=== PATIENT | female | born 1955 | race Caucasian/White ===

== ENCOUNTER → 2021-01-19 15:55 | Outpatient (CLI) | payer MEDICARE, SELFPAY ==
--- NOTE | ~2021-01-19 | US_ITS ---
EXAMINATION: US retroperitoneal comp DATE: 01/19/2021 16:51 INDICATION: Right flank pain. Hematuria. TECHNIQUE: Multiple ultrasound grayscale images of the kidneys were obtained. COMPARISON: None. FINDINGS: Sensitivity is decreased by obesity. The right kidney measures 9.0 x 5.7 x 5.0 cm. The left kidney me asures 12.1 x 6.1 x 6.3 cm. The kidneys demonstrate normal parenchymal echogenicity. There is no hydr onephrosis. The bladder is normal. IMPRESSION: 1. Normal kidneys. No hydronephrosis. Reviewed, dictated and finalized at location A.
== END ==
PROVIDERS: PCP Nurse Practitioner Family; Visit Provider Nurse Practitioner Family
DX: R31.9 Hematuria, unspecified (principal); R10.9 Unspecified abdominal pain
CPT/HCPCS: 76770

== ENCOUNTER 2023-08-21 15:35 | Outpatient (CLI) | payer MEDICARE, SELFPAY ==
[2023-08-21 15:57] LABS: Basophils Percent Auto 0.5 % (0.2-1.2); Eosinophils Absolute Auto 0.1 K/mm3 (0-0.3); Eosinophils Percent Auto 1.5 % (0-4.4); Hematocrit 38.2 % (37.0-47.0); Hemoglobin 11.8 g/dL (12.0-15.0); Immature Granulocyte Absolute 0.02 K/mm3 (0.00-0.031); Immature Granulocyte Percent A 0.3 % (0-0.5); Lymphocytes Absolute Auto 1.51 K/mm3 (0.9-3.2); Lymphocytes Percent Auto 23.3 % (18.3-44.2); Mean Corpuscular HGB Conc 30.9 g/dl (32-36); Mean Corpuscular Hemoglobin 26.9 pg (26-34); Mean Platelet Volume 10.2 fl (7.4-10.4); Monocytes Absolute Auto 0.5 K/mm3 (0.1-0.6); Monocytes Percent Auto 7.6 % (2.6-8.5); Neutrophils Absolute Auto 4.3 K/mm3 (1.3-6.7); Neutrophils Percent Auto 66.8 % (45.5-73.1); Platelet Count Result 264 k/mm3 (150-375); Red Blood Count 4.39 M/mm3 (4.2-5.4); Red Cell Distribution Width 15.8 % (11.5-14.5); White Blood Count 6.5 K/mm3 (4.5-10.0)
[2023-08-21 16:33] LABS: Alanine Aminotransferase 17 U/L (6-35); Alkaline Phosphatase 83 U/L (38-126); Anion Gap 6 mmol/L (8-16); Aspartate Amino Transferase 16 U/L (14-36); Bilirubin,Total 0.5 mg/dL (0.2-1.3); Blood Urea Nitrogen 29 mg/dL (7-17); Carbon Dioxide 29 mmol/L (22-30); Chloride 100 mmol/L (98-107); Estimated Glomerular Filt Rate 49; Glucose 210 mg/dL (65-110); Potassium 4.1 mmol/L (3.4-5.0); Sodium 135 mmol/L (137-145)
[2023-08-24 01:52] LABS: CA-125 209 U/mL (<35)
== END 2023-08-21 15:36 | disposition home or self-care (01) ==
LOC: ANHLAB 15:38
PROVIDERS: PCP Nurse Practitioner Family; Visit Provider Internal Medicine Hematology & Oncology
DX: C54.1 Malignant neoplasm of endometrium (principal)
CPT/HCPCS: 36415; 80053; 85025; 86304

== ENCOUNTER 2023-09-02 16:47 | Outpatient (CLI) | payer MEDICARE, MEDICAID, SELFPAY ==
[2023-09-02 17:45] LABS: Prothrombin Time 13.2 Seconds (11.1-14.7)
[2023-09-02 17:46] LABS: Partial Thromboplastin Time 23.9 Seconds (22.3-36.8)
== END 2023-09-02 16:48 | disposition home or self-care (01) ==
LOC: ANHLAB 16:50
PROVIDERS: Visit Provider Surgery
DX: C54.1 Malignant neoplasm of endometrium (principal); Z01.818 Encounter for other preprocedural examination
CPT/HCPCS: 36415; 85610; 85730

== ENCOUNTER 2023-09-05 00:37 | Day surgery (SDC) | payer MEDICARE, MEDICAID, SELFPAY ==
[2023-08-29 11:22] VITALS: BMI 51.0
--- NOTE | 2023-08-29 11:33 | PC.NURSE ---
PRE-OP INSTRUCTIONS, PLEASE READ CAREFULLY Report to the Outpatient Waiting Room, entrance under the green pavilion located off [facility], at time _0630_ on date _09/05/23_. Planned Procedure Time: _0830_. Time changes happen often and if your time is changed the preop area will call you the afternoon before. - You and your visitor will be asked to self-screen and do not enter if you have any COVID symptoms. - A mask is optional within the hospital at this time. Patients may have clear liquids (water, carbonated beverages, clear teas, apple juice) until 3 hours prior to surgery (0530 AM) with a maximum of 20 ounces. - No food from midnight until time of surgery Take the following medications with a SIP of water the morning of surgery: _GABAPENTIN_ DO NOT STOP ANY OF YOUR OTHER PRESCRIPTION MEDICATIONS PRIOR TO SURGERY ?EXCEPT THE FOLLOWING Medications to discontinue per ANESTHESIA - _VITAMINS & SUPPLEMENTS 3 DAYS PRIOR TO SURGERY, Date to take last dose 09/01/23_ Please no make-up, nail hebrew, hairspray, perfume, deodorant, or body powder the day of surgery. No jewelry (including any body piercings) or valuables the day of surgery, leave them at home. Please take a shower or bath the night before, or the morning of, surgery with an antibacterial soap. Wear comfortable, loose fitting clothing. - Jewelry must be removed prior to entering the operating room. Rings and piercings that are not removed may be cut off. - The hospital will not accept responsibility for valuables. - Please leave all valuables, including medications, at home the day of surgery. If you are going home after surgery, a licensed vending route driver must drive you home. - NO public transportation without another adult if you receive anesthesia. - We recommend that an adult stay with you for 24 hours following discharge. - We also recommend that you do not drive, make important decision, drink alcoholic beverages, or take any drugs that were not prescribed by your health care provider for at least 24 hours after your discharge time. Follow any additional instructions given to you from your surgeon. If you or anyone in your household have experienced Covid symptoms in the past week, please notify your surgeon or the nurse liaison at the phone number below for possible testing. Telephone instructions given to _PATIENT_and asked if any additional questions and then verbalized understanding. Patient advised to call surgeon office or pre surgery nurse liaison [phone] if any additional questions.
--- NOTE | ~2023-09-05 | XR_ITS ---
EXAMINATION: XR chest port-a-cath/central DATE: 09/05/2023 10:17 INDICATION: Port placement. TECHNIQUE: A single frontal view of the chest was obtained on 2 radiographs. COMPARISON: Chest 2 views 11/30/2003 FINDINGS: Sensitivity is decreased by obesity. There is no pneumonia, pleural effusion, or pneumothor ax. The heart size is normal. There is a left internal jugular port with tip in superior vena cava. IMPRESSION: 1. Port tip in superior vena cava. Reviewed, dictated and finalized at location A.
--- NOTE | ~2023-09-05 | XR_ITS ---
EXAMINATION: XR fl guide central line place INDICATION: Port-A-Cath insertion TECHNIQUE: Two intraoperative fluoroscopic images are submitted for review. Total fluoroscopic time w as 26.1 seconds. COMPARISON: None available FINDINGS: Fluoroscopic images demonstrate insertion of a left internal jugular Port-A-Cath. Please re nina to procedure note for full details. IMPRESSION: 1. Please refer to procedure note for full details. Reviewed, dictated and finalized at location F.
[2023-09-05 06:20] VITALS: BP 167/70; PULSE 77; RESP 16; TEMP 36.8; O2SAT 95; BMI 51.5
[2023-09-05] MEDS: LACTATED RINGERS 1,000 ML 30 ML IV CONT (07:20)
[2023-09-05 07:29] LABS: Glucose Point of Care 198 mg/dl (65-105)
[2023-09-05] MEDS: KETOROLAC 15 MG/ML VIAL (*BKC) IV PUSH (07:29)
--- NOTE | 2023-09-05 07:30 | PM.IMHP ---
H&P: HPI History of Present Illness Date/Time: 09/05/23 07:30 Chief Complaint: Endometrial cancer Narrative: The patient is a 68-year-old female presenting to hospital for port placement. The patient has been recently diagnosed endometrial cancer and is undergoing chemotherapy. The patient denies any previous central venous catheterization. The patient is right-handed. Review of Systems Review of Systems: All systems reviewed & are unremarkable except as noted in HPI and below PMFSH Social History Social History Smoking status: Never smoker Second hand tobacco smoke exposure: No Alcohol intake: never Substance use: never Substance use type: does not use Living arrangements: with family Additional living arrangements comments: LIVES WITH SPOUE - BILL Spiritual care concerns: No Meds Home Medications and Allergies Home Medications Medication Instructions Recorded Confirmed Type ascorbic acid (vitamin C) 2,000 mg 2,000 mg PO DAILY 08/28/23 09/02/23 History tablet,extended release cholecalciferol (vitamin D3) 125 125 mcg PO DAILY 08/28/23 09/02/23 History mcg (5,000 unit) tablet (Vitamin D3) dapagliflozin propanediol 10 mg 10 mg PO DAILY 08/28/23 09/02/23 History tablet (Farxiga) gabapentin 400 mg capsule 800 mg PO BID 08/28/23 09/02/23 History indapamide 2.5 mg tablet 2.5 mg PO DAILY 08/28/23 09/02/23 History lisinopril 5 mg tablet 5 mg PO DAILY 08/28/23 09/02/23 History semaglutide 0.25 mg or 0.5 mg (2 0.25 mg subcut WEEKLY 08/28/23 09/02/23 History mg/1.5 mL) subcutaneous pen injector vitamin C 90 mg-zinc gluconate 15 1 karrie PO AC 08/28/23 09/02/23 History mg-herbal complex no. 325 lozenges Allergies Allergy/AdvReac Type Severity Reaction Status Date / Time No Known Allergies Allergy Mild Verified 09/02/23 11:25 Exam Const: General: cooperative, comfortable, no acute distress and obese HENMT: Head: normal to inspection, normocephalic and atraumatic Neck: Neck: normal visual inspection, full ROM and no lymphadenopathy Chest: Chest palpation & inspection: normal inspection of the chest Resp: Auscultation: clear to auscultation bilaterally Cardio: Rate: regular rate Rhythm: regular rhythm GI: Inspection: normal to inspection Assessment and Plan Assessment and plan (1) Endometrial cancer: Code(s): C54.1 - Malignant neoplasm of endometrium Status: Acute Assessment and Plan: will set up for port placement in the operating room
--- NOTE | 2023-09-05 07:33 | WPDHPUPDATE1 ---
History and Physical Update Update Date/Time: 09/05/23 07:33 History and Physical has been reviewed, including an updated exam of the patient. There are NO changes in the patient's condition. Risks, benefits, and alternatives have been discussed and questions answered. Patient agrees to proceed with procedure.
--- NOTE | 2023-09-05 07:49 | P.PNAN_ITS ---
Anes - Initial Pre Proc Eval Procedure: Operation Date: 09/05/23 08:30 Proposed Procedures p Insertion Celeste Cath - Yamini Gibson MD Date/Time: 09/05/23 07:49 Surgeon: Yamini Gibson MD Pre Op Diagnosis: Endometrial Carcinoma Patient Data Age: 68 Gender: F Height: 1.77 m Weight: 160.8 kg Last Vital Signs Temp 98.2 F 09/05/23 06:20 Pulse 77 09/05/23 06:20 Resp 16 09/05/23 06:20 BP 167/70 H 09/05/23 06:20 Pulse Ox 95 09/05/23 06:20 O2 Del Method Room Air 09/05/23 06:20 Allergies Allergy/AdvReac Type Severity Reaction Status Date / Time No Known Allergies Allergy Verified 09/05/23 07:36 Home Medications Medication Instructions Recorded Confirmed Type ascorbic acid (vitamin C) 2,000 mg 2,000 mg PO DAILY 08/28/23 09/05/23 History tablet,extended release cholecalciferol (vitamin D3) 125 125 mcg PO DAILY 08/28/23 09/05/23 History mcg (5,000 unit) tablet (Vitamin D3) dapagliflozin propanediol 10 mg 10 mg PO DAILY 08/28/23 09/02/23 History tablet (Farxiga) gabapentin 400 mg capsule 800 mg PO BID 08/28/23 09/05/23 History indapamide 2.5 mg tablet 2.5 mg PO DAILY 08/28/23 09/02/23 History lisinopril 5 mg tablet 5 mg PO DAILY 08/28/23 09/02/23 History semaglutide 0.25 mg or 0.5 mg (2 0.25 mg subcut WEEKLY 08/28/23 09/05/23 History mg/1.5 mL) subcutaneous pen injector vitamin C 90 mg-zinc gluconate 15 1 karrie PO AC 08/28/23 09/05/23 History mg-herbal complex no. 325 lozenges Laboratory Tests 09/05/23 07:26 POC Capillary Glucose 198 H mg/dl (65-105) Patient hx anesthesia problems: none Family hx anesthesia problems: none Results Review: All pre-operative results and documents have been reviewed as part of the pre- operative evaluation. PMFSH Social History Social History (Reviewed 09/05/23 @ 07:32 by BERTO Pride Smoking status: Never smoker Second hand tobacco smoke exposure: No Alcohol intake: never Substance use: never Substance use type: does not use Living arrangements: with family Additional living arrangements comments: LIVES WITH SPOUE - BILL Spiritual care concerns: No Anes - Eval Final PreProcedure Day of Procedure 09/05/23 07:49 Patient weight: super morbidly obese Heart: regular rate and rhythm Lungs: clear to auscultation Airway: Mallampati scale class III Neurological: alert and oriented Last oral intake: >/= 8 hours ASA classification: IV Emergent: no Anesthetic plan: proceed Anesthesia type and monitoring: general GIVS and LMA and standard monitoring Results Review: All pre-operative results and documents have been reviewed as part of the pre- operative evaluation. Informed Consent: The patient's anesthetic plan and its attendant risks and benefits were discussed with the patient/family/POA. Questions were solicited and answers provided to the satisfaction of the patient/family/POA.
[2023-09-05] MEDS: ceFAZolin 3 GM/D5W 100 ML 100 ML IVPB (08:44)
[2023-09-05] MEDS: BUPIVACAINE/EPINEPHRINE 0.5% 30 ML VIAL INFILTRATE (08:57)
[2023-09-05] MEDS: HEPARIN SODIUM, PORCINE 10,000 UNITS/10 ML VIAL 4000 UNITS IV PUSH (08:59)
[2023-09-05] MEDS: HEPARIN SODIUM 5,000 UNITS/ML VIAL 5000 UNITS IRRIGATION (09:00)
[2023-09-05 09:14] VITALS: BP 107/55; PULSE 81; RESP 16; O2SAT 94
--- NOTE | 2023-09-05 09:20 | W.PM.PROC2 ---
Procedure Note - Detailed Date of Procedure 09/05/23 Pre-op Diagnosis Endometrial Carcinoma Post-op Diagnosis Same Procedure Performed placement of left internal jugular venous access device under both ultrasound and fluroscopic guidance Surgeon Yamini Gibson MD Anesthesia MAC and Local Indications 68 y/o F c endometrial cancer requiring adjuvant chemotherapy. Pt presents for access placement. Findings 1st stick access under ultrasound to LIJ vein Description of Procedure Patient was brought into the operating room and placed in the supine position. After adequate induction of mac anesthesia, the patient was prepped and draped in normal sterile fashion. Time-out was then done to verify the patient's identity, as well as the procedure being performed. I used the ultrasound to gain access into the left internal jugular vein. Once access was gained, I placed the guidewire in the vein and confirmed proper positioning. I then locally anesthetized an area in the left chest. I then made a incision including making a subcutaneous pocket inferiorly to allow placement of the port itself. I proceeded to tunnel the catheter from the chest to the left neck insertion site. I then placed a dilating sheath over the guidewire into the left internal jugular vein via sterile Seldinger technique. This was once again done and confirmed via fluoroscopic guidance. I then removed the dilator and the guidewire, now just leaving the sheath in the vein. I then fed the previously flushed catheter into the left internal jugular vein under fluoroscopic guidance. At approximately 35 cm, the catheter was noted to be near the atrial caval junction. I then peeled away the sheath, now just leaving the catheter in the vein. I then was able to easily draw and flush from the catheter. The catheter was cut to fit and attached to the port itself. The port was placed into the previously made subcutaneous pocket and sutured in with 0 Ethibond suture. Final fluoroscopic view showed the termination of the catheter at the atrial caval junction with a nice smooth curvature back to the port itself. I was able to gain access to the port with a Thompson needle and was able to easily draw and flush from the port. I then flushed 4 cc of a final heparin flush into the port. The incision was closed with 3 0 Vicryl suture in the subcutaneous tissue and the skin was closed with 4 O Monocryl subcuticular suture. Dermabond was then placed on wound. The patient tolerated the procedure well and will be sent to the recovery room in stable condition. Implants LIJ VAD Estimated Blood Loss 10 Pathology None sent Complications No immediate complications Condition Stable Disposition PACU [facility] Billing Surgery - Charge Forward: Surgery Billing
[2023-09-05 09:21] LABS: Glucose Point of Care 238 mg/dl (65-105)
--- NOTE | 2023-09-05 09:26 | SUR.PHASEII ---
Notified Dr. López's regarding patient's blood sugar being elevated at 238. Dr. Galdamez instructed patient to go home and take her antidiabetic medications.
[2023-09-05] MEDS: oxyCODONE HCL (*CRX) 5 MG TAB IR PO (09:43)
[2023-09-05 09:45] VITALS: BP 98/43; PULSE 66; RESP 16; O2SAT 95
[2023-09-05 10:14] VITALS: BP 106/44; PULSE 73; RESP 18
== END 2023-09-05 10:34 | disposition home or self-care (01) ==
PROVIDERS: Visit Provider Surgery
PROC: (CPT 36561; principal; 2023-09-05 08:30)
DX: C54.1 Malignant neoplasm of endometrium (principal); E66.01 Morbid (severe) obesity due to excess calories; Z68.43 Body mass index [BMI] 50.0-59.9, adult; Z79.85 Long-term (current) use of injectable non-insulin antidiabetic drugs
CPT/HCPCS: 36561; 77001; 82948; A9270; C1788; J0690; J1644; J1885; J2405; J2704; J3010; J7030; J7120

== ENCOUNTER 2024-01-09 17:32 | Inpatient (IN) | payer MEDICARE, MEDICAID, SELFPAY ==
[2024-01-09] VITALS (23 sets, daily range): BP systolic 112–143; BP diastolic 55–68; PULSE 95–183; RESP 14–25; TEMP 36.2–38.8; O2SAT 91–95; BMI 50.1; BMI 51.5
--- NOTE | ~2024-01-09 | CT_ITS ---
EXAMINATION: CTA chest abdomen pelvis DATE: 01/09/2024 19:22 INDICATION: Fever. Fall from bed. Recent chemotherapy for endometrial cancer. TECHNIQUE: Computed tomography (CT) angiogram of the chest, abdomen and pelvis was obtained. Sagittal and coronal reconstructions were created. Automated exposure control and iterative reconstruction te chnique were employed. The dose-length product was 2205.55 mGy-cm. COMPARISON: None FINDINGS: Chest: No pneumonia, pulmonary edema or pleural effusion. Calcified right middle lobe nodule and calcified r ight hilar lymph nodes consistent with old granulomatous disease. Cardiomegaly. Atherosclerotic coron tabby artery calcific lesion. No pericardial effusion. Enlargement of the central pulmonary arteries co nsistent with pulmonary arterial hypertension. No pulmonary embolism. Thoracic aorta is normal in abdoul iber with no dissection. Normal variant retroesophageal aberrant right subclavian artery. Couple like ly benign subcentimeter left thyroid nodules. No pathologically enlarged thoracic left internal jugul ar central venous port catheter with distal tip at the superior cavoatrial junction. Moderate thoraci c spondylosis. Lymphadenopathy. Abdomen/pelvis: Cholecystectomy clips at the gallbladder fossa. Liver and bilateral adrenal glands are normal. Bilate ral renal cysts the larger on the right exophytic cyst at the lower pole measuring 1.8 cm. Multiple s cattered calcified splenic granulomata with multiple low-attenuation lesions scattered throughout the spleen also likely sequela of granulomatous disease. There are couple cystic lesions at the head the pancreas measuring 1.5 cm and 1.7 cm in maximal diameters. No bowel obstruction. 14.7 x 13.7 x 11.4 cm lobular likely complex cystic mass with internal septations which appears to arise from the right ovary suspicious for neoplasm. 3.5 x 2.3 cm and 3.6 x 3.0 cm mass at the left adnexal region, both wi th greater than simple fluid attenuation likely representing the ovary the second could represent eit her complex cyst or additional neoplasm. There is a 1.4 cm partially calcified nodule along the anter ior lower uterine segment which could represent a uterine fibroid or potentially granuloma related to prior section. Small amount of gas and a Ron catheter within the decompressed bladder. Ab dominal aorta is normal in caliber with scattered nonhemodynamically significant atherosclerotic plaq ue and no dissection. No free intraperitoneal gas or fluid. No pathologically enlarged abdominal or p elvic lymphadenopathy. Mild lumbar spondylosis. IMPRESSION: 1. Cardiomegaly with enlargement of the central pulmonary arteries consistent with pulmonary arterial hypertension. 2. 14.7 cm lobular right adnexal mass potentially complex cystic concerning for ovarian neoplasm eith er benign or malignant. 3. Couple approximately 3.5 cm left adnexal masses 1 likely representing the ovary and the second cou ld represent either a complex cyst or additional neoplasm. For both this and the larger right adnexal mass would recommend correlation with any prior outside imaging or further evaluation with pre and p ostcontrast MRI. 4. A couple indeterminate cystic lesions at the head of the pancreas with The differential diagnosis includes pseudocyst, intraductal papillary mucinous neoplasm (IPMN), mucinous cystic neoplasm (MCN), and the less common serous cystadenoma and neuroendocrine tumor. Given history of malignancy would al so include metastatic disease on the differential. Correlate for history of pancreatitis with any fela or outside imaging. Otherwise further evaluation with pre and postcontrast MR would also be recommend ed. 5. Numerous low-attenuation lesions scattered throughout the spleen most likely granulomatous disease given the presence presence of multiple additional calcified splenic nodules. Re
--- NOTE | 2024-01-09 17:47 | ECG_ITS ---
Test Date: 2024-01-09 17:41:23 Measurements Intervals [place] Rate: 182 P: 0 NM: 0 QRS: 33 QRSD: 92 T: -60 QT: 248 QTc: 432 Interpretive Statements SUPRAVENTRICULAR TACHYCARDIA SUSPECT ATYPICAL AV NODE REENTRY NONSPECIFIC ST & T-WAVE ABNORMALITY ABNORMAL ECG No previous ECG available for comparison Electronically Signed On 01-10-2024 11:13:47 CDT by Osmin Smith M.D.
--- NOTE | 2024-01-09 17:47 | ECG_ITS ---
Test Date: 2024-01-09 17:49:22 Measurements Intervals [place] Rate: 127 P: 109 KS: 159 QRS: 35 QRSD: 94 T: 32 QT: 294 QTc: 428 Interpretive Statements SINUS TACHYCARDIA WITH OCCASIONAL VENTRICULAR PREMATURE COMPLEXES ABNORMAL RHYTHM ECG Compared to ECG 01/09/2024 17:41:23 SUPRAVENTRICULAR TACHYCARDIA HAS BEEN TERMINATED AND REPLACED BY SINUS RHYTHM Electronically Signed On 01-10-2024 11:14:16 CDT by Osmin Smith M.D.
[2024-01-09] MEDS: SODIUM CHLORIDE 0.9% IV 1,000 ML 999 ML (17:49)
[2024-01-09] MEDS: TETANUS,DIPHTHERIA,AC PERTUSSIS ADULT (0.5 ML) BOOSTRIX (17:59)
[2024-01-09] MEDS: LORazepam INJ (*CRX) 2 MG/ML VIAL 0.5 MG IV PUSH (18:13)
[2024-01-09 18:16] LABS: Hematocrit 36.2 % (37.0-47.0); Hemoglobin 11.9 g/dL (12.0-15.0); Mean Corpuscular HGB Conc 32.9 g/dl (32-36); Mean Corpuscular Volume 94.3 fl (80-100); Mean Platelet Volume 10.1 fl (7.4-10.4); Platelet Count Result 150 k/mm3 (150-375); Red Blood Count 3.84 M/mm3 (4.2-5.4); Red Cell Distribution Width 18.5 % (11.5-14.5); White Blood Count 8.8 K/mm3 (4.5-10.0)
[2024-01-09 18:26] LABS: Lactic Acid Reflex 1.4 mmol/L (0.7-2.0); Prothrombin Time 13.4 Seconds (11.1-14.7)
[2024-01-09 18:27] LABS: Partial Thromboplastin Time 27.7 Seconds (22.3-36.8)
[2024-01-09 18:30] LABS: Alanine Aminotransferase 27 U/L (6-35); Albumin Level 4.1 g/dL (3.5-5.1); Alkaline Phosphatase 92 U/L (38-126); Anion Gap 12 mmol/L (4-12); Aspartate Amino Transferase 26 U/L (14-36); Bilirubin,Total 1.1 mg/dL (0.2-1.3); Blood Urea Nitrogen 27 mg/dL (7-17); CRP 0.9 mg/dL (<1.0); Calcium 9.1 mg/dL (8.4-10.2); Carbon Dioxide 24 mmol/L (22-30); Chloride 101 mmol/L (98-107); Estimated CRCL calculation 119 ml/min; Estimated Glomerular Filt Rate > 60; Glucose 207 mg/dL (65-110); Potassium 3.8 mmol/L (3.4-5.0); Sodium 137 mmol/L (137-145)
--- NOTE | 2024-01-09 18:31 | ED.GENADULT ---
HPI - General Adult General Chief complaint: Arrhythmia/Palpitations Stated complaint: FALL/ INC HR Time Seen by Provider: 01/09/24 17:38 History of Present Illness HPI narrative: This is a 68-year-old female with a history of endometrial cancer being treated with chemotherapy presenting fevers. Patient had a fever earlier today of 100.5 She has had nausea and vomiting and diarrhea although she has associates that with her chemotherapy. She is having right lower quadrant abdominal pain. she denies urinary symptoms. Last chemo was over 1 week ago. She was neutropenic on her last visit with a white blood cell count of 1.6. Patient was feeling weak and fell out of her bed today striking her leg against the TV stand. She he sustained a large laceration to her legs. Patient has chronic lymphedema. When EMS arrived they found her to have a heart rate in the 180s. She was then brought to our hospital for evaluation Related Data Home Medications Medication Instructions Recorded Confirmed ascorbic acid (vitamin C) 2,000 mg 2,000 mg PO DAILY 08/28/23 12/17/23 tablet,extended release cholecalciferol (vitamin D3) 125 125 mcg PO DAILY 08/28/23 12/17/23 mcg (5,000 unit) tablet (Vitamin D3) dapagliflozin propanediol 10 mg 10 mg PO DAILY 08/28/23 12/17/23 tablet (Farxiga) gabapentin 400 mg capsule 800 mg PO BID 08/28/23 12/17/23 indapamide 2.5 mg tablet 2.5 mg PO DAILY 08/28/23 12/17/23 lisinopril 5 mg tablet 5 mg PO DAILY 08/28/23 12/17/23 semaglutide 0.25 mg or 0.5 mg (2 0.25 mg subcut WEEKLY 08/28/23 12/17/23 mg/1.5 mL) subcutaneous pen injector vitamin C 90 mg-zinc gluconate 15 1 karrie PO AC 08/28/23 12/17/23 mg-herbal complex no. 325 lozenges vitamin B12 1,000 mcg-folic acid 1 tablet sublingual DAILY 11/05/23 12/17/23 400 mcg sublingual tablet Allergies Allergy/AdvReac Type Severity Reaction Status Date / Time No Known Allergies Allergy Verified 12/17/23 16:11 [facility] Past Medical History Medical History Endometrial cancer Social History Social History Smoking status: Never smoker Second hand tobacco smoke exposure: No Alcohol intake: never Substance use: never Substance use type: does not use Living arrangements: with family Additional living arrangements comments: LIVES WITH SPOUE - BILL Spiritual care concerns: No Exam Narrative: APPEARANCE: No apparent distress. Head: atraumatic. EYES: EOMI, NOSE: Atraumatic NECK: Trachea midline RESPIRATORY: No increased rate of breathing, clear to auscultation, 100% on room air CARDIOVASCULAR: tachycardic, chronic appearing lymphedema of the lower extremities ABDOMINAL: reported tenderness in the right lower quadrant but none appreciable on exam. Exam is severely limited due to body habitus. MUSCULOSKELETAl: No obvious deformities NEURO: Alert. Moving 4/4 extremities SKIN:: 18 cm laceration to the left garcia PSYCHIATRIC: Normal affect Course Vital Signs Vital signs: Vital Signs Temperature 101.8 F H 01/09/24 17:40 Pulse Rate 181 H 01/09/24 17:40 Respiratory Rate 21 H 01/09/24 17:40 Blood Pressure 128/68 01/09/24 17:40 Pulse Oximetry 94 01/09/24 17:40 Oxygen Delivery Room Air 01/09/24 17:40 Temperature 97.4 F L 01/09/24 20:30 Pulse Rate 104 H 01/09/24 20:55 Respiratory Rate 17 01/09/24 20:55 Blood Pressure 138/62 01/09/24 20:55 Pulse Oximetry 94 01/09/24 20:55 Oxygen Delivery Room Air 01/09/24 17:40 Procedures Laceration Laceration 1: Date: 01/09/24 Site: lower extremity Side (If applicable): left Size (cm): 18 Description: linear (V shaped) Depth: simple, single layer Local Anesthetic: lidocaine 1% and with epi ====== Skin Level ====== ====== Subcutaneous Layer ====== ====== Muscle Layer =====
[2024-01-09 18:36] LABS: Band Neutrophils Percent 5 % (0-6); Lymphocytes Absolute Manual 0.44 K/mm3 (1.1-4.5); Lymphocytes Percent Manual 5 % (18-44); Monocytes Absolute Manual 0.35 K/mm3 (0.1-0.90); Monocytes Percent Manual 4 % (3-9); Total Cells Counted 100
[2024-01-09 18:37] LABS: Neutrophils Percent Manual 86 % (46-73); Platelet Estimate Adequate (Adequate); Schistocytes None Seen
[2024-01-09 18:39] LABS: Troponin I 0.016 ng/mL (0.000-0.034)
[2024-01-09] MEDS: ADENOSINE IV SOLN 6 MG/2 ML VIAL (18:41)
[2024-01-09 18:51] LABS: Influenza A QL RT-PCR Negative (Negative); Influenza B QL RT-PCR Negative (Negative); SARS-CoV-2 RNA PCR Negative (Negative)
[2024-01-09 18:59] LABS: Magnesium 1.6 mg/dL (1.6-2.3)
[2024-01-09 19:12] LABS: NT Pro B Type Natriuretic Pept 464 pg/mL (19.9-100); Troponin I 0.016 ng/mL (0.000-0.034)
[2024-01-09 19:23] LABS: Add Urine Microscopic? YES; Appearance Urine Clear (Clear); Bacteria Urine 4+ /hpf; Bilirubin Urine Negative (Negative); Blood Urine Negative (Negative); Color Urine Yellow (Yellow); Glucose Urine UA 3+ mg/dL (Negative); Ketones Urine Trace mg/dL (Negative); Leukocyte Esterase Ur Negative LEU/UL (Negative); Nitrate Urine Positive (Negative); Non Pathogenic Casts 0-2; Protein Urine Negative (Negative); RBC Urine 0-2 /hpf (0-2); Specific Grav Ur 1.027 (1.001-1.035); Squamous Epithelial Cell Urine None Seen /hpf (Few); Urobilinogen Urine 0.2 mg/dL (<2.0)
[2024-01-09] MEDS: ACETAMINOPHEN 500 MG TABLET 1000 MG PO (20:46)
[2024-01-09] MEDS: PIPERACILLN/TAZ 3.375GM/NS50ML 3.375 GM/50 ML BAG IVPB (20:46)
[2024-01-09] MEDS: KETOROLAC 15 MG/ML VIAL (*BKC) IV PUSH (20:47)
--- NOTE | 2024-01-09 21:24 | PM.IMHP ---
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 The patient presents here from home via EMS for further evaluation s/p ground-level fall. Patient reports fall from her bed while she was attempting to get up to use the restroom. Patient then hit her leg on the TV mounting causing a large laceration to her left lower extremity. Early that day she reported to her daughter that she had been experiencing generalized weakness, malaise, body aches, fever and chills. Upon EMS arrival, the patient was found to be in SVT with heart rate in the 180s and dressing was applied to laceration. Patient denies experiencing chest pain, shortness of breath, palpitations, nausea, vomiting, diaphoresis, or diarrhea. Arrived to ED with HR of 181, temperature of 101.8? F, and dressing saturated in blood. ECG/telemetry concerning for SVT. During IV insertion, patient converted to NSR. Patient went into SVT a 2nd time and was given adenosine with conversion to sinus tachycardia in the 130s. Patient denies LOC or head strike during fall. Reports no other falls in the last 3 months. Reports the generalized weakness, fever, and chills that started 1-2 days. Currently undergoing treatment for endometrial cancer - chemo and plan for surgery on 02/06. Follows with Josafat SANDOVAL at [facility]. Last chemo treatment on 01/16. Continues to deny shortness of breath, chest pain, or palpitations. Initial VS at presentation: 101.8? F, HR 181, RR 21, 128/68, and 94% on RA. ED workup showed: No leukocytosis, hemoglobin 11.9, normal coags, creatinine 0.6 and normal GFR, no significant electrolyte derangements, BNP 464, and initial troponin 0.016. UA suggestive of UTI. Viral PCR negative. CTA of the chest/abdomen/pelvis showed cardiomegaly with enlargement of the central pulmonary arteries consistent with pulmonary arterial hypertension, adnexal masses consistent with ovarian neoplasm, a few indeterminate cystic lesions at the head of the pancreas, numerous 0 attention lesions scattered throughout the spleen most likely granulomatous disease. Review of Systems Review of Systems: All systems reviewed & are unremarkable except as noted in HPI and below PMFSH Past Medical History Medical History (Updated 01/09/24 @ 23:26 by Shira Sandhu APRN) DM2 (diabetes mellitus, type 2) Endometrial cancer HTN (hypertension) Social History Social History Smoking status: Never smoker Second hand tobacco smoke exposure: No Alcohol intake: never Substance use: never Substance use type: does not use Living arrangements: with family Additional living arrangements comments: LIVES WITH SPOUE - BILL Spiritual care concerns: No Meds Home Medications and Allergies Home Medications Medication Instructions Recorded Confirmed Type cholecalciferol (vitamin D3) 125 125 mcg PO DAILY 08/28/23 01/09/24 History mcg (5,000 unit) tablet (Vitamin D3) dapagliflozin propanediol 10 mg 10 mg PO DAILY 08/28/23 01/09/24 History tablet (Farxiga) gabapentin 400 mg capsule 800 mg PO BID 08/28/23 01/09/24 History lisinopril 5 mg tablet 5 mg PO DAILY 08/28/23 01/09/24 History insulin degludec 100 unit/mL (3 See Rx Instructions .Route .COMPLEX 01/09/24 01/09/24 History mL) subcutaneous pen (Tresiba FlexTouch U-100 insulin) semaglutide 1 mg/dose (4 mg/3 mL) 1 mg subcut WEEKLY 01/09/24 01/09/24 History subcutaneous pen injector (Ozempic) tramadol 50 mg tablet 50 mg PO BID PRN Pain (Scale Score 01/09/24 01/09/24 History 4-6) Allergies Allergy/AdvReac Type Severity Reaction Status Date / Time No Known Allergies Allergy Verified 01/09/24 23:30 Vital Signs Vital Signs - 24 hr 01/09/24 17:40
[2024-01-09] MEDS: VANCOMYCIN 1,500 MG/NS 500 ML 1,500 MG/500 ML BAG 250 MG IVPB (21:25)
--- NOTE | 2024-01-09 21:34 | ECG_ITS ---
Test Date: 2024-01-09 22:53:15 Measurements Intervals [place] Rate: 109 P: 89 AR: 156 QRS: 16 QRSD: 101 T: 17 QT: 338 QTc: 456 Interpretive Statements SINUS TACHYCARDIA ABNORMAL RHYTHM ECG Compared to ECG 01/09/2024 17:49:22 Ventricular premature complex(es) no longer present Electronically Signed On 01-10-2024 11:24:16 CDT by Osmin Smith M.D.
[2024-01-09 22:01] LABS: Troponin I 0.107 ng/mL (0.000-0.034)
--- NOTE | 2024-01-09 22:36 | PC.NURSE ---
Patient received 4700 mL of Normal Saline per sepsis protocol.
--- NOTE | 2024-01-09 23:20 | ADMGEN ---
This patient, Rafaela Martinez, was admitted to IMU Room 202-. Patient/family oriented to hospital policies and general routines including ID bracelet, bed and alarms, visiting hours, pain management, procedures, bathroom and other care routines, personal items, smoking policy, room service/diet, and visiting hours. Information on how to activate the Rapid Response Team has been discussed. Patient/Family are encouraged to report perceived risks to care and to ask questions if they do not understand what they are told or what they should do.
[2024-01-10] VITALS (16 sets, daily range): BP systolic 120–135; BP diastolic 47–66; PULSE 79–108; RESP 16–18; TEMP 36.4–37.6; O2SAT 92–97; BMI 50.1
--- NOTE | 2024-01-10 | ECHO_ITS ---
Patient Info Name: Rafaela Martinez Age: 68 years : 1955 Gender: Female Ht: 69 in Wt: 342 lbs BSA: 2.83 m2 HR: 104 bpm BP: 121 / 47 mmHg Heart Rhythm: Sinus Rhythm Technical Quality: Fair Exam Date: 01/10/2024 7:51 AM Exam Location: Echo Lab Patient Status: Inpatient Admit Date: 01/09/2024 Staff Ordering Physician: Shira Sandhu APRN Athletic Director: Ree Aviles RDCS Attending Provider: Priya Medrano DO Referring Physician: Phoebe BELLO; Exam Type: CA echo dop color flow w con Study Info Indications - C/F PULMONARY ARTERIAL HTN AND CARDIOMEGALY Complete two-dimensional, color flow and Doppler transthoracic echocardiogram is performed with contrast to opacify the left ventricle and to improve the deliniation of the left ventricle endocardial borders. Contrast/Agitated Saline Contrast/Ag. Saline: Definity Amount: 3.00 ml Administered By: Ree Aviles RDCS Existing IV Access: Yes IV Access Condition: patent with no signs of infiltration Summary 1. Technically challenging echocardiogram because of obesity. 2. Normal left ventricular size and vigorous systolic contractility. 3. Grade 1 diastolic noncompliance. 4. Enlarged left atrium. 5. No valvular dysfunction. 6. Definity contrast used to improve visualization. Left Ventricle Left ventricular chamber dimension is normal. Left ventricular systolic function is normal, estimated at 65-70%. The left ventricular diastolic function is grade I diastolic dysfunction. Right Ventricle Right ventricular chamber dimension is normal. Left Atria Left atrial chamber dimension is moderately enlarged. Right Atria Right atrial chamber dimension is normal. Aortic Valve The aortic valve is trileaflet. There is mild aortic valve sclerosis. Pulmonic Valve The pulmonic valve is not well visualized. Mitral Valve The mitral valve has normal leaflets. Tricuspid Valve The tricuspid valve leaflets are normal. Pericardium/Pleural The pericardium appears normal. Aorta The aortic root size at the sinus of Valsalva is normal. Left Ventricular Outflow Tract Name Value Normal LVOT 2D LVOT Diameter 1.98 cm LVOT Doppler LVOT Peak Gradient 6 mmHg LVOT Mean Gradient 3 mmHg LVOT VTI 23.44 cm LVOT VTI/AV VTI Ratio 0.76 LVOT Stroke Volume 72.22 ml LVOT CO 6.90 l/min LVOT CI 2.43 L/min/m2 Pulmonic Valve Name Value Normal RVOT Doppler RVOT Peak Gradient 2 mmHg PV Doppler PV Peak Gradient 4 mmHg Mitral Valve Name Value Nor
[2024-01-10] MEDS: LACTATED RINGERS 1,000 ML 125 ML IV CONT (00:20)
[2024-01-10] MEDS: traMADol HCL (*CRX) 50 MG TABLET PO ×2 (00:33→18:03)
[2024-01-10] MEDS: PIPERACILLN/TAZ 3.375GM/NS50ML 3.375 GM/50 ML BAG IVPB ×4 (01:48→19:50)
[2024-01-10 04:01] LABS: Basophils Percent Auto 0.5 % (0.2-1.2); Eosinophils Percent Auto 0.2 % (0-4.4); Hematocrit 30.2 % (37.0-47.0); Hemoglobin 9.3 g/dL (12.0-15.0); Immature Granulocyte Absolute 0.02 K/mm3 (0.00-0.031); Immature Granulocyte Percent A 0.5 % (0-0.5); Lymphocytes Absolute Auto 0.44 K/mm3 (0.9-3.2); Lymphocytes Percent Auto 10.9 % (18.3-44.2); Mean Corpuscular HGB Conc 30.8 g/dl (32-36); Mean Corpuscular Hemoglobin 30.5 pg (26-34); Mean Platelet Volume 9.7 fl (7.4-10.4); Monocytes Absolute Auto 0.3 K/mm3 (0.1-0.6); Neutrophils Absolute Auto 3.3 K/mm3 (1.3-6.7); Neutrophils Percent Auto 80.9 % (45.5-73.1); Red Blood Count 3.05 M/mm3 (4.2-5.4); Red Cell Distribution Width 19.2 % (11.5-14.5)
[2024-01-10 04:03] LABS: Platelet Count Result 100 k/mm3 (150-375)
[2024-01-10 04:11] LABS: Alanine Aminotransferase 21 U/L (6-35); Albumin Level 2.9 g/dL (3.5-5.1); Alkaline Phosphatase 63 U/L (38-126); Anion Gap 7 mmol/L (4-12); Aspartate Amino Transferase 20 U/L (14-36); Bilirubin,Total 0.9 mg/dL (0.2-1.3); Blood Urea Nitrogen 25 mg/dL (7-17); Calcium 7.9 mg/dL (8.4-10.2); Carbon Dioxide 25 mmol/L (22-30); Chloride 106 mmol/L (98-107); Estimated CRCL calculation 94 ml/min; Estimated Glomerular Filt Rate > 60; Glucose 120 mg/dL (65-110); Magnesium 1.7 mg/dL (1.6-2.3); Phosphorus 3.7 mg/dL (2.5-4.5); Potassium 3.4 mmol/L (3.4-5.0); Sodium 138 mmol/L (137-145)
[2024-01-10] MEDS: ACETAMINOPHEN 500 MG TABLET 1000 MG PO (04:36)
[2024-01-10 04:41] LABS: Thyroid Stimulating Hormone Reflex 0.667 uIU/mL (0.465-4.68)
[2024-01-10 06:56] LABS: Glucose Point of Care 161 mg/dl (65-105)
[2024-01-10 07:32] LABS: Procalcitonin 0.2 ng/mL
[2024-01-10] MEDS: PERFLUTREN LIPID MICROSPHERES 1.5 ML VIAL DILUTED TO 10 ML TOTAL VOLUME IV PUSH (08:16)
[2024-01-10] MEDS: EMPAGLIFLOZIN 25 MG TABLET PO (08:46)
[2024-01-10] MEDS: GABAPENTIN 400 MG CAPSULE 800 MG PO ×2 (08:46→18:01)
[2024-01-10] MEDS: lisinopriL 5 MG TABLET PO (08:46)
[2024-01-10] MEDS: CHOLECALCIFEROL 5,000 UNITS TABLET 5000 UNITS PO (08:46)
[2024-01-10] MEDS: VANCOMYCIN 1,500 MG/NS 500 ML 1,500 MG/500 ML BAG 250 MG IVPB ×2 (10:14→20:30)
[2024-01-10] MEDS: METOPROLOL TARTRATE 6.25 MG TABLET PO ×2 (11:21→20:08)
--- NOTE | 2024-01-10 11:34 | IVDEFINITY ---
Prior to administration of IV Definity the patient was educated on the risks and benefits of the imaging enhancing agent including potential adverse side effects. The patient verbalized understanding. Allergies were verified. No exclusion criteria were identified and at least one of the following inclusion criteria were met: 1) physician request, 2) patient technically difficult to image (per the [place] [employer] guidelines of two or more segments not discernable within the apical view), or 3) questionable left ventricular function. ?
[2024-01-10 12:06] LABS: Glucose Point of Care 151 mg/dl (65-105)
--- NOTE | 2024-01-10 13:59 | PDONCCN ---
[facility] - Date of Consult Date/Time: 01/10/24 13:59 Requesting Physician: Priya Medrano DO Primary Care Provider: QC TECH PHYSICIAN - Consult Narrative Reason for consult: Endometrial cancer. Narrative: Rafaela Martinez is a 68 year old female with history of endometrial adenocarcinoma FIGO grade 2 status post hysteroscopy and D&C done in July 2023. Stage IIIA disease. She completed preoperative chemotherapy with Carboplatinum Taxol and Keytruda 4 weeks ago. Patient now came into the hospital status post fall with laceration of the left lower extremity. According the patient she got lightheaded and dizzy while attempting to get up the bed to go to the restroom. She had 19 stitches placed. No further bleeding. Labs showed hemoglobin of 11.9. CT scan of chest abdomen and pelvis done that showed 14.7 cm right adnexal mass concerning for ovarian neoplasm along with 3.5 cm left adnexal mass. There was cystic neoplasm of the pancreas in granulomatous disease of the spleen. There was element of cardiomegaly with pulmonary hypertension. She denies any previous history of pulmonary hypertension. Denies any chest pain and shortness of breath. Echocardiogram was performed that showed ejection fraction of 65-70%. Denies any other new complaints. Review of Systems - Review of Systems All systems reviewed & are unremarkable except as noted in [facility] and [facility] Medical History: Medical History (Last Updated 01/09/24 @ 23:24 by Shira Sandhu APRN) DM2 (diabetes mellitus, type 2) Endometrial cancer HTN (hypertension) Family History: Family History (Last Updated 01/09/24 @ 23:56 by Nikki Penn RN) Father S/P triple vessel bypass Diabetes mellitus - Social History Social History: Social History (Last Reviewed 01/09/24 @ 22:47 by Shira Sandhu APRN) Alcohol Use: Alcohol intake: unknown Substance Use: Substance use: never Substance use type: does not use Others: Spiritual care concerns: No Spiritual care concerns comment: Orthodox Living Arrangements: Living arrangements: with family Smoking Status: Smoking status: Never smoker Second hand tobacco smoke exposure: No Social Determinants of Health: Do You Feel Safe in your Home?: Yes Has the Lack of Transportation Kept You From Medical Appointments or From Getting Medications?: No Within the Past 12 Months, Were You Worried Whether Your Food Would Run Out Before You Got Money to Buy More?: Never True What is Your Housing Situation Today?: I Have Housing Are You Worried That in the Next 2 Months, You May Not Have Your Own Housing to Live In?: No Do You Have Trouble Paying Your Heating Or Electricity Bill?: No Do You Have Trouble Paying For Medicines?: No Are You Currently Unemployed and Looking for Work?: No Highest Level of Education Completed: High School Diploma/GED Do You Have Trouble With Childcare or the Care of a Family Member?: No Exam - Vital Signs Vital Signs - 24 hr 01/09/24 17:40 01/09/24 17:46 01/09/24 18:12 Temperature 38.8 C H Pulse Rate 181 H 133 H 174 H Respiratory Rate 21 H 19 Blood Pressure 128/68 142/66 H Pulse Oximetry 94 94 Oxygen Delivery Room Air 01/09/24 18:29 01/09/24 18:56 01/09/24 17:40 Temperature Pulse Rate 171 H 120 H 183 H Respiratory Rate 17 25 H Blood Pressure 143/65 H Pulse Oximetry 94 94 Oxygen Delivery 01/09/24 17:41 01/09/24 17:45 01/09/24 17:46 Temperature Pulse Rate 183 H 180 H 135 H Respiratory Rate 21 H 19 19 Blood Pressure 128/68 142/66 H Pulse Oximetry 94 94 92 Oxygen Delivery 01/09/24 18:00 01/09/24 18:01 01/09/24 18:15 Temperature Pulse Rate 173 H 174 H 174 H Respiratory Rate 20 23 H 20 Blood Pressure 138/64 Pulse Oximetry 93 93 94 Oxygen Delivery 01/09/24 18:17 01/09/24 18:30 01/09/24 18:45 Temperature Pulse Rate 173 H 172 H 119 H Respira
[2024-01-10 16:46] LABS: Glucose Point of Care 117 mg/dl (65-105)
--- NOTE | 2024-01-10 17:11 | PM.IMPN ---
Progress Note: A&P Assessment and Plan (1) DM2 (diabetes mellitus, type 2): Qualifiers: Diabetes mellitus psychiatric clinician insulin use: unspecified fci insulin use status Diabetes mellitus complication status: with neurologic complications Diabetes mellitus complication detail: with unspecified neuropathy Qualified Code(s): E11.40 - Type 2 diabetes mellitus with diabetic neuropathy, unspecified Code(s): E11.9 - Type 2 diabetes mellitus without complications Status: Chronic (2) HTN (hypertension): Qualifiers: Hypertension type: primary hypertension Qualified Code(s): I10 - Essential (primary) hypertension Code(s): I10 - Essential (primary) hypertension Status: Chronic (3) Sepsis: Qualifiers: Sepsis type: sepsis due to unspecified organism Sepsis acute organ dysfunction status: without acute organ dysfunction Qualified Code(s): A41.9 - Sepsis, unspecified organism Code(s): A41.9 - Sepsis, unspecified organism Status: Acute (4) Fever: Code(s): R50.9 - Fever, unspecified Status: Acute (5) Endometrial cancer: Code(s): C54.1 - Malignant neoplasm of endometrium Status: Acute (6) Cardiomegaly: Code(s): I51.7 - Cardiomegaly Status: Acute (7) Acute UTI: Code(s): N39.0 - Urinary tract infection, site not specified Status: Acute (8) Paroxysmal SVT (supraventricular tachycardia): Code(s): I47.10 - Supraventricular tachycardia, unspecified Status: Acute (9) Laceration of garcia: Code(s): S81.819A - Laceration without foreign body, unspecified lower leg, initial encounter Status: Acute Plan H&P via Shira Sandhu, CLUB WAITER/WAITRESS 68 y/o F presents here with ground-level fall with PMH of endometrial cancer, neuropathy (secondary to diabetes and chemotherapy), lymphedema, HTN and DM. The patient presents here from home via EMS for further evaluation s/p ground-level fall. Patient reports fall from her bed while she was attempting to get up to use the restroom. Patient then hit her leg on the TV mounting causing a large laceration to her left lower extremity. Early that day she reported to her daughter that she had been experiencing generalized weakness, malaise, body aches, fever and chills. Upon EMS arrival, the patient was found to be in SVT with heart rate in the 180s and dressing was applied to laceration. Patient denies experiencing chest pain, shortness of breath, palpitations, nausea, vomiting, diaphoresis, or diarrhea. Arrived to ED with HR of 181, temperature of 101.8? F, and dressing saturated in blood. ECG/telemetry concerning for SVT. During IV insertion, patient converted to NSR. Patient went into SVT a 2nd time and was given adenosine with conversion to sinus tachycardia in the 130s. Patient denies LOC or head strike during fall. Reports no other falls in the last 3 months. Reports the generalized weakness, fever, and chills that started 1-2 days. Currently undergoing treatment for endometrial cancer - chemo and plan for surgery on 02/06. Follows with Josafat SANDOVAL at [facility]. Last chemo treatment on 01/16. Continues to deny shortness of breath, chest pain, or palpitations. Initial VS at presentation: 101.8? F, HR 181, RR 21, 128/68, and 94% on RA. ED workup showed: No leukocytosis, hemoglobin 11.9, normal coags, creatinine 0.6 and normal GFR, no significant electrolyte derangements, BNP 464, and initial troponin 0.016. UA suggestive of UTI. Viral PCR negative. CTA of the chest/abdomen/pelvis showed cardiomegaly with enlargement of the central pulmonary arteries consistent with pulmonary arterial hypertension, adnexal masses consistent with ovarian neoplasm, a few indeterminate cystic lesions at the head of the pancreas, numerous 0 attention lesions scattered throughout the spleen most likely granulomatous disease. ---- The patient's sepsis has resolved. She is self hydrating. Discontinu
[2024-01-10 21:48] LABS: Glucose Point of Care 124 mg/dl (65-105)
[2024-01-11] VITALS: PULSE 77
[2024-01-11] MEDS: PANTOPRAZOLE 40 MG TABLET PO ×2 (00:17→10:05)
[2024-01-11 02:00] VITALS: PULSE 83
[2024-01-11] MEDS: PIPERACILLN/TAZ 3.375GM/NS50ML 3.375 GM/50 ML BAG IVPB ×2 (02:06→10:09)
[2024-01-11 04:00] VITALS: PULSE 89
[2024-01-11 06:54] LABS: Glucose Point of Care 114 mg/dl (65-105)
[2024-01-11 08:00] VITALS: BP 131/56; PULSE 77; PULSE 79; RESP 20; TEMP 36.8; O2SAT 95
[2024-01-11 08:22] LABS: Basophils Percent Auto 0.4 % (0.2-1.2); Eosinophils Absolute Auto 0.1 K/mm3 (0-0.3); Hematocrit 29.6 % (37.0-47.0); Hemoglobin 9.5 g/dL (12.0-15.0); Immature Granulocyte Absolute 0.01 K/mm3 (0.00-0.031); Immature Granulocyte Percent A 0.4 % (0-0.5); Lymphocytes Percent Auto 27.6 % (18.3-44.2); Mean Corpuscular HGB Conc 32.1 g/dl (32-36); Mean Corpuscular Hemoglobin 31.1 pg (26-34); Mean Platelet Volume 9.7 fl (7.4-10.4); Monocytes Absolute Auto 0.3 K/mm3 (0.1-0.6); Monocytes Percent Auto 13.4 % (2.6-8.5); Neutrophils Absolute Auto 1.4 K/mm3 (1.3-6.7); Neutrophils Percent Auto 56.2 % (45.5-73.1); Platelet Count Result 105 k/mm3 (150-375); Red Blood Count 3.05 M/mm3 (4.2-5.4); Red Cell Distribution Width 18.5 % (11.5-14.5); White Blood Count 2.5 K/mm3 (4.5-10.0)
[2024-01-11 08:41] LABS: Anion Gap 7 mmol/L (4-12); Blood Urea Nitrogen 18 mg/dL (7-17); Calcium 8.5 mg/dL (8.4-10.2); Carbon Dioxide 25 mmol/L (22-30); Chloride 103 mmol/L (98-107); Estimated CRCL calculation 106 ml/min; Estimated Glomerular Filt Rate > 60; Glucose 107 mg/dL (65-110); Magnesium 1.8 mg/dL (1.6-2.3); Potassium 3.8 mmol/L (3.4-5.0); Sodium 135 mmol/L (137-145)
[2024-01-11 08:53] LABS: Vancomycin Trough 11.7 ug/mL (10.0-20.0)
[2024-01-11 09:18] LABS: Iron 44 ug/dL (37-170)
[2024-01-11 09:27] LABS: Percent Iron Saturation 15 % (20-50)
[2024-01-11 10:05] VITALS: PULSE 88
[2024-01-11] MEDS: GABAPENTIN 400 MG CAPSULE 800 MG PO (10:05)
[2024-01-11] MEDS: METOPROLOL TARTRATE 6.25 MG TABLET PO (10:05)
[2024-01-11] MEDS: lisinopriL 5 MG TABLET PO (10:05)
[2024-01-11] MEDS: EMPAGLIFLOZIN 25 MG TABLET PO (10:06)
[2024-01-11] MEDS: CHOLECALCIFEROL 5,000 UNITS TABLET 5000 UNITS PO (10:06)
[2024-01-11 10:27] LABS: Folic Acid 7.6 ng/mL (2.76->20)
[2024-01-11] MEDS: VANCOMYCIN 1,500 MG/NS 500 ML 1,500 MG/500 ML BAG 250 MG IVPB (11:06)
[2024-01-11 11:54] LABS: Glucose Point of Care 133 mg/dl (65-105)
[2024-01-11 12:00] VITALS: PULSE 100
--- NOTE | 2024-01-11 12:32 | PM.DS ---
DS: Admitting Diagnosis Discharge Date January 11, 2024 Admitting Diagnosis Fall at home DS: Discharge Diagnosis Discharge Diagnosis (1) Weakness: Code(s): R53.1 - Weakness Status: Acute (2) Neuropathy: Code(s): G62.9 - Polyneuropathy, unspecified Status: Acute (3) Normocytic anemia: Code(s): D64.9 - Anemia, unspecified Status: Acute (4) DM2 (diabetes mellitus, type 2): Qualifiers: Diabetes mellitus watermelon harvesting supervisor insulin use: unspecified watermelon harvesting supervisor insulin use status Diabetes mellitus complication status: with neurologic complications Diabetes mellitus complication detail: with unspecified neuropathy Qualified Code(s): E11.40 - Type 2 diabetes mellitus with diabetic neuropathy, unspecified Code(s): E11.9 - Type 2 diabetes mellitus without complications Status: Chronic (5) HTN (hypertension): Qualifiers: Hypertension type: primary hypertension Qualified Code(s): I10 - Essential (primary) hypertension Code(s): I10 - Essential (primary) hypertension Status: Chronic (6) Sepsis: Qualifiers: Sepsis type: sepsis due to unspecified organism Sepsis acute organ dysfunction status: without acute organ dysfunction Qualified Code(s): A41.9 - Sepsis, unspecified organism Code(s): A41.9 - Sepsis, unspecified organism Status: Acute (7) Fever: Code(s): R50.9 - Fever, unspecified Status: Acute (8) Endometrial cancer: Code(s): C54.1 - Malignant neoplasm of endometrium Status: Acute (9) Acute UTI: Code(s): N39.0 - Urinary tract infection, site not specified Status: Acute (10) Paroxysmal SVT (supraventricular tachycardia): Code(s): I47.10 - Supraventricular tachycardia, unspecified Status: Acute (11) Laceration of garcia: Code(s): S81.819A - Laceration without foreign body, unspecified lower leg, initial encounter Status: Acute DS: Summary Hospital Course Hospital Course: H&P via Shira Sandhu, COSTUME SHOP COORDINATOR 68 y/o F presents here with ground-level fall with PMH of endometrial cancer, neuropathy (secondary to diabetes and chemotherapy), lymphedema, HTN and DM. The patient presents here from home via EMS for further evaluation s/p ground-level fall. Patient reports fall from her bed while she was attempting to get up to use the restroom. Patient then hit her leg on the TV mounting causing a large laceration to her left lower extremity. Early that day she reported to her daughter that she had been experiencing generalized weakness, malaise, body aches, fever and chills. Upon EMS arrival, the patient was found to be in SVT with heart rate in the 180s and dressing was applied to laceration. Patient denies experiencing chest pain, shortness of breath, palpitations, nausea, vomiting, diaphoresis, or diarrhea. Arrived to ED with HR of 181, temperature of 101.8? F, and dressing saturated in blood. ECG/telemetry concerning for SVT. During IV insertion, patient converted to NSR. Patient went into SVT a 2nd time and was given adenosine with conversion to sinus tachycardia in the 130s. Patient denies LOC or head strike during fall. Reports no other falls in the last 3 months. Reports the generalized weakness, fever, and chills that started 1-2 days. Currently undergoing treatment for endometrial cancer - chemo and plan for surgery on 02/06. Follows with Josafat SANDOVAL at [place]. Last chemo treatment on 01/16. Continues to deny shortness of breath, chest pain, or palpitations. Initial VS at presentation: 101.8? F, HR 181, RR 21, 128/68, and 94% on RA. ED workup showed: No leukocytosis, hemoglobin 11.9, normal coags, creatinine 0.6 and normal GFR, no significant electrolyte derangements, BNP 464, and initial troponin 0.016. UA suggestive of UTI. Viral PCR negative. CTA of the chest/abdomen/pelvis showed cardiomegaly with enlargement of the central pulmonary arteries consistent with pulmon
== END 2024-01-11 14:27 | disposition home or self-care (01) | DRG 872 ==
LOC: ANHED 21:40 → ANHIMU 22:40
PROVIDERS: Student in an Organized Health Care Education/Training Program; Admitting Provider Internal Medicine; Emergency Provider Emergency Medicine; PCP Pediatrics; Visit Provider General Practice
DX: A41.9 Sepsis, unspecified organism (principal); N39.0 Urinary tract infection, site not specified; I47.10 Supraventricular tachycardia, unspecified; I42.9 Cardiomyopathy, unspecified; Z68.43 Body mass index [BMI] 50.0-59.9, adult; B96.20 Unspecified Escherichia coli [E. coli] as the cause of diseases classified elsewhere; E11.42 Type 2 diabetes mellitus with diabetic polyneuropathy; I10 Essential (primary) hypertension; D64.9 Anemia, unspecified; C54.1 Malignant neoplasm of endometrium; G62.9 Polyneuropathy, unspecified; T45.1X5A Adverse effect of antineoplastic and immunosuppressive drugs, initial encounter; S81.812A Laceration without foreign body, left lower leg, initial encounter; W06.XXXA Fall from bed, initial encounter; I51.7 Cardiomegaly; E66.9 Obesity, unspecified
CPT/HCPCS: 12005; 36415; 71275; 74174; 80048; 80053; 80202; 81001; 82607; 82728; 82746; 82948; 83540; 83550; 83605; 83735; 83880; 84100; 84145; 84443; 84484; 85025; 85610; 85730; 86140; 87040; 87077; 87086; 87088; 87186; 87636; 90471; 90715; 93005; 96361; 96365; 96375; 97161; 97165; 97535; 99285; A9270; C8929; J0153; J1885; J2060; J2543; J3370; J7030; J7120; Q9957; Q9967

== ENCOUNTER 2024-03-31 07:35 | Outpatient (RCR) | payer MEDICARE, MEDICAID, SELFPAY ==
[2024-01-21 08:25] VITALS: BMI 48.8
== END 2024-04-20 23:59 | disposition home or self-care (01) ==
LOC: ANHWOC 07:35
PROVIDERS: PCP Pediatrics; Visit Provider Nurse Practitioner Family
DX: L97.822 Non-pressure chronic ulcer of other part of left lower leg with fat layer exposed (principal)
CPT/HCPCS: 97602; 99213; 99214; A9270; G0463

== ENCOUNTER 2024-05-06 07:23 | Outpatient (RCR) | payer MEDICARE, MEDICAID, SELFPAY ==
[2024-05-06] VITALS (9 sets, daily range): BP systolic 142–178; BP diastolic 64–79; PULSE 75–90; RESP 16; TEMP 36.4–37.3; O2SAT 94–100
[2024-05-06] MEDS: SODIUM CHLORIDE 0.9% IV 250 ML 30 ML IV CONT (08:46)
[2024-05-06] MEDS: diphenhydrAMINE HCl CAP 25 MG CAPSULE PO (08:47)
[2024-05-06] MEDS: FUROSEMIDE INJ 40 MG/4 ML VIAL 20 MG IV PUSH (11:37)
[2024-05-06] MEDS: HEPARIN SODIUM LOCK FLUSH 500 UNITS/5 ML SYRINGE (15:17)
== END 2024-05-19 15:41 | disposition home or self-care (01) ==
LOC: ANHCPCTRAN 07:23
PROVIDERS: PCP Pediatrics; Visit Provider Internal Medicine Hematology & Oncology
DX: C54.1 Malignant neoplasm of endometrium (principal)
CPT/HCPCS: 36415; 36430; 86850; 86900; 86901; 86920; 96374; A9270; J1940; J7050; P9016

== ENCOUNTER 2024-05-20 07:50 | Outpatient (RCR) | payer MEDICARE, MEDICAID, SELFPAY ==
[2024-05-20] VITALS (10 sets, daily range): BP systolic 122–163; BP diastolic 59–90; PULSE 84–101; RESP 14–16; TEMP 36.9–38; O2SAT 95–99
[2024-05-20] MEDS: diphenhydrAMINE HCl CAP 25 MG CAPSULE PO (09:06)
[2024-05-20] MEDS: TUBING, BLOOD PLUM PUMP TUBING 1 EACH XX (09:25)
[2024-05-20] MEDS: SODIUM CHLORIDE 0.9% IV 250 ML 30 ML IV CONT (09:25)
[2024-05-20] MEDS: FUROSEMIDE INJ 40 MG/4 ML VIAL 20 MG IV PUSH (12:20)
[2024-05-20] MEDS: ACETAMINOPHEN 325 MG TABLET 650 MG PO (14:55)
== END 2024-08-18 23:59 | disposition home or self-care (01) ==
LOC: ANHCPCTRAN 07:50
PROVIDERS: PCP Pediatrics; Visit Provider Internal Medicine Hematology & Oncology
DX: D64.9 Anemia, unspecified (principal)
CPT/HCPCS: 36415; 36430; 86850; 86900; 86901; 86923; 96374; A9270; J1940; J7050; P9016